=== PATIENT | female | born 1960 | race Caucasian/White ===

== ENCOUNTER 2019-11-28 16:28 | Emergency (ER) | payer SELFPAY ==
[~2019-11-28] VITALS: Ht 167.6 cm; Wt 75.9 kg
[2019-11-28 16:33] VITALS: Ht 167.6 cm; Wt 75.9 kg
[2019-11-28] MEDS ORDERED: PRAVACHOL20 MG PO (16:34)
[2019-11-28] MEDS ORDERED: TENORMIN25 MG (16:34)
[2019-11-28 18:40] VITALS: BP 105/75
== END 2019-11-28 18:40 | disposition home or self-care (01) ==
LOC: D.ER 16:28
DX: J11.1 Influenza due to unidentified influenza virus with other respiratory manifestations (principal); R05 Cough; R50.9 Fever, unspecified; I10 Essential (primary) hypertension; E78.5 Hyperlipidemia, unspecified